=== PATIENT | female | born 1970 | race Hispanic/Latino ===

== ENCOUNTER 2022-03-30 21:01 | Emergency (ER) | payer OTHER, MEDICAID, SELFPAY ==
[2022-03-30 21:12] VITALS: BP 151/73; PULSE 88; RESP 20; TEMP 36.8; O2SAT 100
--- NOTE | 2022-03-30 21:17 | ED_ITS ---
HPI - Recheck/Abnormal Lab/Rx General Chief Complaint: Recheck/Abnormal Lab/Rx Stated Complaint: abd pain, divercolitis flare Time Seen by Provider: 03/30/22 21:07 Source: patient Mode of arrival: Ambulatory History of Present Illness HPI narrative: 51-year-old female nonsmoker with history of diverticulitis presents with her in the chief complaint of needing pain medication. She comes with paperwork from an outside facility in just a few days ago had evaluation at an outside facility for abdominal pain. Labs were unremarkable, CT is reviewed and show diverticulitis without abscess or perforation. She was given antibiotics but no pain medications. She continues to have achy pain in her lower abdomen. This pain is consistent with prior episodes of diverticulitis. It is worse with motion and improves with rest. She has had nausea and slightly decreased appetite but is tolerating orals. She denies runny nose, sore throat, cough or chest pain. She has had no fever. She states her symptoms are stable compared to her recent evaluation and is only here requesting pain medicines. Related Data Previous Rx's Medication Instructions Recorded dicyclomine 10 mg capsule 10 mg PO TID PRN #14 cap 03/30/22 hydrocodone 5 mg-acetaminophen 325 1 tab PO Q4-6H PRN #10 tab 03/30/22 mg tablet Review of Systems Review of Systems Narrative: GENERAL: see HPI HEENT: Denies sinus pain, ear pain, sore throat, difficulty swallowing, dizziness. RESPIRATORY: Denies dyspnea, cough, wheezing, hemoptysis, sputum. CARDIOVASCULAR: Denies chest pain, palpitations, orthopnea, edema, GASTROINTESTINAL: see HPI : Denies dysuria, frequency, incontinence, hematuria, urinary retention. MUSCULOSKELETAL: denies weakness, joint pain, or bony pain SKIN: Denies rash, skin lesions, or other NEUROLOGIC: Denies weakness, headache, numbness, change in speech, confusion, seizures, incoordination. PSYCHIATRIC: No concerning psychosocial issues. 12 point review of systems is negative except for those stated above Exam Narrative Exam Narrative: GEN: AOx3 and in mild distress EYES: Pupils are equal, round, and reactive to light and accommodation. Extraoccular muscles are intact bilaterally. There is no subconjunctival hemorrhage or exudate. CHEST: Lungs are clear to auscultation bilaterally and free of wheezes, rales, or rhonchi. Heart rate is regular rhythm, there are no murmurs, clicks, rubs, or gallops. There is no chest wall tenderness. ABD: Abdomen is soft with tenderness but no rebound or peritoneal signs, bowel sounds present There is no guarding or rebound. Bowel sounds are normal in all 4 quadrants. There is no mass or organomegaly. EXT: Full painless ROM of all extremities with no loss of sensation or strength. SKIN: Warm, pink, and dry. No erythema or rash Initial Vital Signs Initial Vital Signs: Vital Signs Temperature 98.3 F 03/30/22 21:12 Pulse Rate 88 03/30/22 21:12 Respiratory Rate 20 03/30/22 21:12 Blood Pressure 151/73 H 03/30/22 21:12 Pulse Oximetry 100 03/30/22 21:12 Course Orders Ordered: Discontinued Medications Hydrocodone Bitart/Acetaminophen (Hydrocodone/Acet 5/325 Prepack) 1 bottle [facility] [place] [facility] ONE Stop: 03/30/22 22:06 Last Admin: 03/30/22 22:15 Dose: 1 bottle Documented by: [email or web address] Hydromorphone HCl (Hydromorphone 0.5 Mg Inj) 0.5 mg IV NOW ONE Stop: 03/30/22 22:06 Last Admin: 03/30/22 22:15 Dose: 0.5 mg Documented by: MACARIOTE Ondansetron HCl (Ondansetron 4 Mg Odt Prepack) 1 bottle [facility] [place] [facility] ONE Stop: 03/30/22 22:06 Last Admin: 03/30/22 22:15 Dose: 1 bottle Documented by: PASCALE Vital Signs Vital signs: Vital Signs - 8 hr 03/30/22 21:12 Temperature 98.3 F Pulse Rate 88 Respiratory Rate 20 Blood Pressure 151/73 H Pulse Oximetry 100 MDM - Recheck/Abnormal Lab/Rx Lab Data Result diagrams: 03/30/22 21:29 03/30/22 21:29 Labs: Lab Results 03/30/22 03/30/22 03/30/22 Range/Units 21:29 21:29 21:29 WBC 9.7 (4.5-11.0) X10^3/uL RBC 4.40 (4.0-5.2) X10^6/uL Hgb 13.0 (12.0-16.0) g/dL Hct 38.8 (36-46) % MCV 88.2 (80-100) fL MCH 29.5 (26-34) PG MCHC 33.4 (30-36) % RDW 15.1 H (11.6-14.8) % Plt Count 272 (150-400) X10^3/uL Neut % (Auto) 68.7 (50-75) % Lymph % (Auto) 20.3 L (25-40) % [place] % (Auto) 9.2 (3-14) % Eos % (Auto) 0.8 L (2-4) % Baso % (Auto) 1.0 (0-2) % Neut # (Auto) 6600 (5464-2200) /uL Lymph # (Auto) 2000 (9064-8148) /uL [place] # (Auto) 900 (0-900) /uL Eos # (Auto) 100 (0-450) /uL Baso # (Auto) 100 (0-100) /uL PT 12.2 (10.1-12.7) SECONDS INR 1.1 (0.9-1.3) APTT 30 (26.4-36.2) SECONDS Sodium 137 (137-145) mmol/L Potassium 3.5 (3.4-5.1) mmol/L Chloride 102 (98-107) mmol/L Carbon Dioxide 27 (22-32) mmol/L BUN 8 (7-17) mg/dL Creatinine 0.56 (0.52-1.04) mg/dL Estimated GFR > 60 (>60) mL/min BUN/Creatinine Ratio 14.3 (6-22) Glucose 111 H (70-100) mg/dL Calcium 8.3 L (8.4-10.2) mg/dL Total Bilirubin 1.0 (0.2-1.3) mg/dL AST 41 H (14-36) IU/L ALT 46 H (<35) IU/L Alkaline Phosphatase 125 (38-126) U/L Total Protein 8.5 H (6.3-8.2) g/dL Albumin 4.1 (3.5-5.0) g/dL Globulin 4.4 H (1.7-4.1) g/dL Albumin/Globulin Ratio 0.9 L (1.0-2.8) Lipase 35 (23-300) U/L MDM Narrative Medical decision making narrative: Patient presents with reassuring history and physical exam, recent diagnosis of diverticulitis and requesting pain medications. Her chart has been reviewed including CT and there is no evidence of abscess or perforation. Her symptoms are stable. She is tolerating orals and has stable vital signs. Prescription monitoring site has been reviewed and no narcotics have recently been written. Patient given return precautions, prescription sent to the pharmacy of her choice, questions answered to her apparent satisfaction Discharge Plan Departure Patient Disposition: Home Clinical Impression: Diverticulitis Instructions: DI for Diverticulitis Activity Restrictions/Additional Instructions: *You have been diagnosed with [abdominal pain due to Diverticulitis] * As we discussed your history and physical exam as well as labs and imaging are very reassuring. There is no evidence of any findings on your CT from [facility] that would require admission or surgery at this time *What to do: *Please continue to take your regular medications as directed. [x ] New medication prescriptions sent to your pharmacy: [ [facility] in [place]] *Please follow up with your primary care provider in 2-3 days, call for an appointment. Let them know you were seen in the Emergency Department and that we ask that you be seen in follow up. We will electronically transmit a record of today's note if your PCP is in our system *Please consider a clear liquid diet for the next 24-48 hours and then slowly advance to regular as tolerated. Also, try to avoid alcohol, nicotine, caffeine, spicy, acidic or fatty foods as this may worsen your symptoms *If you do not have a primary care provider please contact the [facility] Resource line at [phone]. They will ask some questions about your medical history and help get you set up with a doctor in the community. *Return to Emergency Department if you should have any new, worsening or concerning symptoms, such as [fever greater than 101 F, shaking chills, worsening pain, persistent vomiting or other bothersome symptoms] You have been prescribed a short course of narcotic medications. These are potentially dangerous and addictive medications that should be used carefully. While on these medications you cannot drive or operate heavy machinery. Additionally, you cannot sign legal documents or perform any duties such as this. Many people get constipated on narcotic medications so it would be advisable to discuss stool softeners with the pharmacist when you fiber picker your prescription. Please understand that we cannot provide further refills of narcotics or controlled substances through the ED and your pain management will need to be through your Primary Care Provider Prescriptions: New hydrocodone-acetaminophen 5-325 mg tablet 1 tab PO Q4-6H PRN (Reason: pain) Qty: 10 0RF dicyclomine 10 mg capsule 10 mg PO TID PRN (Reason: abdominal pain) Qty: 14 0RF
[2022-03-30 21:45] LABS: INR 1.1 (0.9-1.3); Prothrombin Time 12.2 SECONDS (10.1-12.7)
[2022-03-30 21:48] LABS: PTT Partial Thromboplastin Tim 30 SECONDS (26.4-36.2)
[2022-03-30 21:49] LABS: Alanine Aminotransferase 46 IU/L (<35); Albumin 4.1 g/dL (3.5-5.0); Albumin Globulin Ratio 0.9 (1.0-2.8); Alkaline Phosphatase 125 U/L (38-126); Aspartate Aminotransferase 41 IU/L (14-36); BUN Creatinine Ratio 14.3 (6-22); Blood Urea Nitrogen 8 mg/dL (7-17); Calcium 8.3 mg/dL (8.4-10.2); Carbon Dioxide 27 mmol/L (22-32); Chloride 102 mmol/L (98-107); Estimated Glomerular Filt Rate > 60 mL/min (>60); Globulin 4.4 g/dL (1.7-4.1); Glucose 111 mg/dL (70-100); HEMOLYSIS < 15 (0-50); Lipase 35 U/L (23-300); Potassium 3.5 mmol/L (3.4-5.1); Sodium 137 mmol/L (137-145); Total Protein 8.5 g/dL (6.3-8.2)
[2022-03-30 21:51] LABS: Add Manual Diff / Slide Review NO; Basophils Absolute Auto 100 /uL (0-100); Eosinophils Absolute Auto 100 /uL (0-450); Eosinophils Percent Auto 0.8 % (2-4); Hematocrit 38.8 % (36-46); Lymphocytes Absolute Auto 2000 /uL (1100-4500); Lymphocytes Percent Auto 20.3 % (25-40); Mean Corpuscular HGB Conc 33.4 % (30-36); Mean Corpuscular Hemoglobin 29.5 PG (26-34); Mean Corpuscular Volume 88.2 fL (80-100); Monocytes Absolute Auto 900 /uL (0-900); Monocytes Percent Auto 9.2 % (3-14); Neutrophils Absolute Auto 6600 /uL (1500-7000); Neutrophils Percent Auto 68.7 % (50-75); Platelet Count 272 X10^3/uL (150-400); Red Cell Distribution Width 15.1 % (11.6-14.8); White Blood Cell Count 9.7 X10^3/uL (4.5-11.0)
[2022-03-30] MEDS: HYDROMORPHONE 0.5 MG INJ IV (22:15)
[2022-03-30] MEDS: HYDROCODONE/ACET 5/325 PREPACK 1 BOTTLE MISC (22:15)
[2022-03-30] MEDS: ONDANSETRON 4 MG ODT PREPACK 1 BOTTLE MISC (22:15)
[2022-03-30 22:25] VITALS: BP 168/88; PULSE 67; RESP 16; O2SAT 97
== END 2022-03-30 22:30 | disposition home or self-care (01) ==
PROVIDERS: Emergency Provider Emergency Medicine
DX: K57.92 Diverticulitis of intestine, part unspecified, without perforation or abscess without bleeding (principal)
CPT/HCPCS: 36415; 80053; 83690; 85025; 85610; 85730; 96374; 99284; J1170

== ENCOUNTER 2024-01-20 16:53 | Emergency (ER) | payer OTHER, MEDICAID, SELFPAY ==
[2024-01-20] VITALS (12 sets, daily range): BP systolic 132–177; BP diastolic 60–93; PULSE 65–76; RESP 18; TEMP 36.4; O2SAT 96–100; BMI 36.5
[2024-01-20 17:21] LABS: Add Manual Diff / Slide Review NO; Basophils Absolute Auto 100 /uL (0-100); Basophils Percent Auto 1.2 % (0-2); Eosinophils Absolute Auto 200 /uL (0-450); Eosinophils Percent Auto 1.5 % (2-4); Hematocrit 40.3 % (36-46); Hemoglobin 13.4 g/dL (12.0-16.0); Lymphocytes Absolute Auto 2900 /uL (1100-4500); Lymphocytes Percent Auto 28.2 % (25-40); Mean Corpuscular HGB Conc 33.2 % (30-36); Mean Corpuscular Hemoglobin 29.7 PG (26-34); Mean Corpuscular Volume 89.3 fL (80-100); Monocytes Absolute Auto 800 /uL (0-900); Monocytes Percent Auto 7.7 % (3-14); Neutrophils Absolute Auto 6400 /uL (1500-7000); Neutrophils Percent Auto 61.4 % (50-75); Platelet Count 266 X10^3/uL (150-400); Red Blood Cell Count 4.52 X10^6/uL (4.0-5.2); White Blood Cell Count 10.3 X10^3/uL (4.5-11.0)
--- NOTE | 2024-01-20 17:27 | DI.CT.S_ITS ---
PROCEDURE: CT ABDOMEN PELVIS W CON INDICATIONS: diverticulitis, increased pain. recent CT @ [facility] 01/28 TECHNIQUE: After the administration of intravenous contrast, axial sections acquired from the lung bases to the pubic symphysis. Coronal and sagittal reformats were performed. For radiation dose reduction, the following was used: automated exposure control, adjustment of mA and/or kV according to patient size. COMPARISON: [facility], CT, CT ABDOMEN PELVIS WITH CONTRAST, 01/17/2024, 10:51. FINDINGS: Image quality: Diagnostic. Lower Chest: No significant findings. ABDOMEN: Liver: No solid mass. Gallbladder: No radiopaque gallstones or wall thickening. Biliary ducts: No biliary dilation. Pancreas: No ductal dilation. Spleen: Size is within normal limits. Adrenal Glands: No adrenal nodules. Kidneys and Ureters: No hydronephrosis. No solid mass. No complex renal cystic lesion which requires follow up. Stomach and Bowel: Sigmoid thickening with inflammatory change as well as diverticula are again identified. Overall appearance is similar versus slightly more thickened appearance of the bowel. No abscess, no identified free fluid or free air. Peritoneum: No abnormal intraperitoneal fluid. No free air. Ventral Wall: No significant ventral hernia. Abdominal Nodes: No retroperitoneal or mesenteric adenopathy by size criteria. Vessels: Aorta and inferior vena cava are normal in size. PELVIS: Pelvic Organs: Unremarkable. Bladder: No bladder wall thickening, accounting for underdistention. Pelvic Nodes: No enlarged lymph nodes. Miscellaneous: No inguinal hernias are seen. Bones: No aggressive osseous abnormality. IMPRESSION: Stable versus slightly thickened appearance of the sigmoid colon consistent with colitis secondary diverticulitis. No abscess, free fluid or free air. Recommend interval follow-up to document resolution and exclude presence of underlying mass. Dictated by: Lissa Solorzano M.D. on 01/20/2024 at 18:06 Approved by: Lissa Solorzano M.D. on 01/20/2024 at 18:07
[2024-01-20 17:37] LABS: Alanine Aminotransferase 31 IU/L (<35); Albumin 4.1 g/dL (3.5-5.0); Alkaline Phosphatase 91 U/L (38-126); Aspartate Aminotransferase 37 IU/L (14-36); BUN Creatinine Ratio 30.1 (6-22); Bilirubin Total 0.7 mg/dL (0.2-1.3); Blood Urea Nitrogen 22 mg/dL (7-17); Carbon Dioxide 30 mmol/L (22-32); Chloride 103 mmol/L (98-107); Estimated Glomerular Filt Rate > 60 mL/min (>60); Globulin 4.1 g/dL (1.7-4.1); Glucose 94 mg/dL (70-100); HEMOLYSIS 19 (0-50); Lipase 51 U/L (23-300); Potassium 3.8 mmol/L (3.4-5.1); Sodium 137 mmol/L (137-145); Total Protein 8.2 g/dL (6.3-8.2)
--- NOTE | 2024-01-20 22:19 | ED_ITS ---
HPI - General Adult General Chief complaint: Abdominal Pain Stated complaint: abd px, hx diverticulitis Time Seen by Provider: 01/20/24 18:11 Source: patient Mode of arrival: Ambulatory History of Present Illness HPI narrative: 53-year-old woman with history of diabetes, reflux, hypertension, prior episodes of diverticulitis and most recently seen at [facility] on January 16 where she was diagnosed with acute diverticulitis. She was started on Augmentin and noted that she is not feeling better. In fact she feels that she is a bit more swollen, having to strain sometimes with voiding. She is not having dysuria. She has not complaining of fevers or chills. She is still able to pass bowel movements and has been taking MiraLax to avoid constipation. Related Data Previous Rx's Medication Instructions Recorded dicyclomine 10 mg capsule 10 mg PO TID PRN abdominal pain 03/30/22 #14 caps hydrocodone 5 mg-acetaminophen 325 1 tab PO Q4-6H PRN pain #10 tabs 03/30/22 mg tablet ciprofloxacin HCl 750 mg tablet 750 mg PO BID #20 tabs 01/20/24 metronidazole 500 mg tablet 500 mg PO BID #20 tabs 01/20/24 Allergies Allergy/AdvReac Type Severity Reaction Status Date / Time No Known Drug Allergies Allergy Verified 01/20/24 17:02 Review of Systems Review of Systems Narrative: Pertinent positive and negative findings as per HPI Patient History Social History Smoking Status: Never smoker Smoking Status: Never smoker alcohol intake frequency: 0-2 drinks per day Substance Use Type: does not use Exam Initial Vital Signs Initial Vital Signs: Vital Signs Temperature 97.5 F L 01/20/24 16:57 Pulse Rate 68 01/20/24 16:57 Respiratory Rate 18 01/20/24 16:57 Blood Pressure 177/87 H 01/20/24 16:57 Pulse Oximetry 96 01/20/24 16:57 Oxygen Delivery Method Room Air 01/20/24 16:57 General: Healthy appearing, in no acute distress. Able to give a complete and coherent history. Well-nourished well-developed HEENT: Moist mucous membranes, normal sclera with reactive pupils, Neck: No JVD, supple Respiratory: Lungs are clear to auscultation, no wheezing no rales no rhonchi. Full and symmetrical air movement Cardiac: Regular rate and rhythm no murmurs no bruits Abdomen: Soft, mild tenderness in the left lower quadrant without rebound or guarding Skin: Warm and dry, no rashes Neurologic: Grossly neurologically intact with no obvious asymmetries or abnormalities Extremities: No trauma, well perfused Psych: Cooperative, appropriate insight and affect Course Orders Ordered: ED Orders 01/20/24 17:03 EKG-12 Lead Stat 01/20/24 17:04 Complete Blood Count AUTO DIFF Stat Comprehensive Metabolic Panel Stat Lipase Stat 01/20/24 17:27 CT abdomen pelvis w con Stat Ondansetron HCl (Ondansetron 4 Mg/2 Ml Inj) 4 mg IV NOW PRN PRN Reason: Nausea And Vomiting Ondansetron HCl (Ondansetron 4 Mg Odt) 4 mg PO NOW PRN PRN Reason: Nausea And Vomiting Vital Signs Vital signs: Vital Signs - 8 hr 01/20/24 16:57 01/20/24 19:21 01/20/24 19:29 Temperature 97.5 F L Pulse Rate 68 69 Respiratory Rate 18 Blood Pressure 177/87 H 145/69 H Pulse Oximetry 96 100 Oxygen Delivery Method Room Air Room Air 01/20/24 19:29 01/20/24 19:30 01/20/24 19:30 Temperature Pulse Rate 69 69 Respiratory Rate Blood Pressure 142/70 H Pulse Oximetry 96 98 Oxygen Delivery Method Room Air Room Air Medical Decision Making Lab Data 01/20/24 17:04 01/20/24 17:04 Labs: Lab Results 01/20/24 Range/Units 17:04 WBC 10.3 (4.5-11.0) X10^3/uL RBC 4.52 (4.0-5.2) X10^6/uL Hgb 13.4 (12.0-16.0) g/dL Hct 40.3 (36-46) % MCV 89.3 (80-100) fL MCH 29.7 (26-34) PG MCHC 33.2 (30-36) % RDW 15.0 H (11.6-14.8) % Plt Count 266 (150-400) X10^3/uL Neut % (Auto) 61.4 (50-75) % Lymph % (Auto) 28.2 (25-40) % [place] % (Auto) 7.7 (3-14) % Eos % (Auto) 1.5 L (2-4) % Baso % (Auto) 1.2 (0-2) % Neut # (Auto) 6400 (3661-1440) /uL Lymph # (Auto) 2900 (7323-3691) /uL [place] # (Auto) 800 (0-900) /uL Eos # (Auto) 200 (0-450) /uL Baso # (Auto) 100 (0-100) /uL Sodium 137 (137-145) mmol/L Potassium 3.8 (3.4-5.1) mmol/L Chloride 103 (98-107) mmol/L Carbon Dioxide 30 (22-32) mmol/L BUN 22 H (7-17) mg/dL Creatinine 0.73 (0.52-1.04) mg/dL Estimated GFR > 60 (>60) mL/min BUN/Creatinine Ratio 30.1 H (6-22) Glucose 94 (70-100) mg/dL Calcium 9.0 (8.4-10.2) mg/dL Total Bilirubin 0.7 (0.2-1.3) mg/dL AST 37 H (14-36) IU/L ALT 31 (<35) IU/L Alkaline Phosphatase 91 (38-126) U/L Total Protein 8.2 (6.3-8.2) g/dL Albumin 4.1 (3.5-5.0) g/dL Globulin 4.1 (1.7-4.1) g/dL Albumin/Globulin Ratio 1.0 (1.0-2.8) Lipase 51 (23-300) U/L Imaging Data CT scan - abdomen/pelvis: Radiologist's Impression: PROCEDURE: CT ABDOMEN PELVIS W CON INDICATIONS: diverticulitis, increased pain. recent CT @ [facility] 01/28 TECHNIQUE: After the administration of intravenous contrast, axial sections acquired from the lung bases to the pubic symphysis. Coronal and sagittal reformats were performed. For radiation dose reduction, the following was used: automated exposure control, adjustment of mA and/or kV according to patient size. COMPARISON: [facility], CT, CT ABDOMEN PELVIS WITH CONTRAST, 01/17/2024, 10:51. FINDINGS: Image quality: Diagnostic. Lower Chest: No significant findings. ABDOMEN: Liver: No solid mass. Gallbladder: No radiopaque gallstones or wall thickening. Biliary ducts: No biliary dilation. Pancreas: No ductal dilation. Spleen: Size is within normal limits. Adrenal Glands: No adrenal nodules. Kidneys and Ureters: No hydronephrosis. No solid mass. No complex renal cystic lesion which requires follow up. Stomach and Bowel: Sigmoid thickening with inflammatory change as well as diverticula are again identified. Overall appearance is similar versus slightly more thickened appearance of the bowel. No abscess, no identified free fluid or free air. Peritoneum: No abnormal intraperitoneal fluid. No free air. Ventral Wall: No significant ventral hernia. Abdominal Nodes: No retroperitoneal or mesenteric adenopathy by size criteria. Vessels: Aorta and inferior vena cava are normal in size. PELVIS: Pelvic Organs: Unremarkable. Bladder: No bladder wall thickening, accounting for underdistention. Pelvic Nodes: No enlarged lymph nodes. Miscellaneous: No inguinal hernias are seen. Bones: No aggressive osseous abnormality. IMPRESSION: Stable versus slightly thickened appearance of the sigmoid colon consistent with colitis secondary diverticulitis. No abscess, free fluid or free air. Recommend interval follow-up to document resolution and exclude presence of underlying mass. Dictated by: Lissa Solorzano M.D. on 01/20/2024 at 18:06 MDM Narrative Medical decision making narrative: CC: Persistent left lower quadrant tenderness after diagnosis of diverticulitis on January 16 Complicating co-morbidities: Prior history of diverticulitis Data collected from: patient Social determinants of health that may influence the patients condition: Medical records reviewed: [facility] notes with original diagnosis of diverticulitis on January [address] scan are reviewed. Colonoscopy done on December 09 of this year showed moderate sigmoid diverticulosis and small internal hemorrhoids. No masses or colon cancer concerns were identified at that time Differential considered: Worsening diverticulitis, bowel obstruction, mass, perforation Exam documented above, pertinent findings include: Exam is benign with left lower quadrant tenderness only Lab Test results independently reviewed as above. Pertinent findings: CBC does not show significant leukocytosis or anemia Chemistries are reassuring Imaging studies independently reviewed: Mild inflammatory changes consistent with diverticulitis being treated without perforation, abscess or mass Treatments: IV Dilaudid, Zofran. Started on Cipro and oral Flagyl Discussion: 53-year-old woman with recurrent history of diverticulitis. Recent colonoscopy in December of this year did not show masses cancers or other abnormalities. She was started on Augmentin [address] scan suggested developing diverticulitis. She is finding that she has not feeling better as she has with the combination of Cipro and Flagyl with prior episodes. She is concerned that there is a problem and comes in for further evaluation. Labs are reassuring, exam is essentially benign, CT scan confirms mild diverticulitis without need for additional imaging or hospitalization. We discussed continuing use of MiraLax so that she has not straining to have a bowel movement, will switch her to Cipro and Flagyl. She has oxycodone and Zofran available at home. We will encourage her to follow up with her primary care physician as an outpatient. She is safe for discharge Discharge Plan Departure Patient Disposition: Home Clinical Impression: Diverticulitis Instructions: DI for Diverticulitis Activity Restrictions/Additional Instructions: Thank you for coming in today Your lab work and CT scan today do suggest diverticulitis however it is not worse and there is no abscess. You do not need to be in the hospital and we do not need any IV antibiotics. You said that you had faster results with Cipro and Flagyl so will switch you back to that from the Augmentin that you currently are taking. It is okay to stop the Augmentin. The antibiotic prescriptions have been electronically transmitted to [facility] in [place] Please do continue the MiraLax to make sure that you are stools stays soft. If you find that you are getting worse or develop any new symptoms, please feel free to return to the emergency department for further evaluation. Prescriptions: New ciprofloxacin HCl 750 mg tablet 750 mg PO BID Qty: 20 0RF metronidazole 500 mg tablet 500 mg PO BID Qty: 20 0RF No Action hydrocodone-acetaminophen 5-325 mg tablet 1 tab PO Q4-6H PRN (Reason: pain) Qty: 10 0RF dicyclomine 10 mg capsule 10 mg PO TID PRN (Reason: abdominal pain) Qty: 14 0RF Referrals: Miscellaneous,Doctor, MD [Primary Care Provider] - Stand Alone Forms: Patient Portal/API
[2024-01-20] MEDS: CIPROFLOXACIN 250 MG TABLET 750 MG PO (22:46)
[2024-01-20] MEDS: HYDROMORPHONE 0.5 MG INJ IV (22:49)
[2024-01-20] MEDS: ONDANSETRON 4 MG/2 ML INJ IV (22:49)
[2024-01-20] MEDS: metroNIDAZOLE 500 MG TABLET PO (22:50)
== END 2024-01-20 23:00 | disposition home or self-care (01) ==
PROVIDERS: Emergency Medicine; Emergency Provider Emergency Medicine
DX: K57.92 Diverticulitis of intestine, part unspecified, without perforation or abscess without bleeding (principal); R10.9 Unspecified abdominal pain
CPT/HCPCS: 36415; 74177; 80053; 82962; 83690; 85025; 93005; 93010; 96374; 96375; 99284; J1170; J2405; Q9967